=== PATIENT | female | born 1990 | race Hispanic/Latino ===

== ENCOUNTER 2022-07-04 14:36 | Emergency (ER) | payer OTHER, MEDICAID, SELFPAY ==
[2022-07-04 14:45] VITALS: BP 189/90; PULSE 91; RESP 16; TEMP 36.8; O2SAT 99; BMI 45.7
--- NOTE | 2022-07-04 14:59 | DI.US.S_ITS ---
PROCEDURE: US OB <= 14 WEEKS FETUS INDICATIONS: SPOTTING OUTSIDE/PRIOR DATING DATA: Last menstrual period (LMP): 05/18/2022. LMP-based estimated date of delivery (ELIF): 02/22/2023. First dating scan (date and location): 06/24 05/12. Estimated date of delivery (ELIF) from first dating scan: 03/05/2023. The calculations are made using the ultrasound ELIF of 03/05/2023. TECHNIQUE: Real-time scanning was performed of the fetus and maternal pelvic organs, with image documentation. Endovaginal scanning was also performed to better visualize the fetus and maternal ovaries. COMPARISON: None. FINDINGS: There is a very early intrauterine with a gestational sac without crown-rump length or heartbeat. The mean gestational sac diameter measures 0.4 cm, 5 weeks 1 day Maternal organs: Ovaries are unremarkable. IMPRESSION: Very early intrauterine with gestational sac only. Measurements are 5 weeks 1 day. Comment: Recommend serial beta HCG measurements and consideration of a follow-up ultrasound in 1-2 weeks. We strive to produce accurate, complete, and clear reports of imaging services. To assist us in improving patient care, this report was composed using standard report templates and voice recognition software. Therefore, it may contain abnormal punctuation, insertions and/or omissions. Occasional wrong-word or sound-alike substitutions may occur. Though we review the report and make efforts to correct it, we do recommend that the report be read carefully in proper context to recognize any text inaccuracies. Dictated by: Jose Rico M.D. on 07/04/2022 at 17:15 Approved by: Jose Rico M.D. on 07/04/2022 at 17:18
[2022-07-04 15:22] LABS: Add Manual Diff / Slide Review NO; Basophils Absolute Auto 100 /uL (0-100); Basophils Percent Auto 0.9 % (0-2); Eosinophils Absolute Auto 100 /uL (0-450); Eosinophils Percent Auto 1.2 % (2-4); Hematocrit 36.1 % (36-46); Hemoglobin 12.2 g/dL (12.0-16.0); Lymphocytes Absolute Auto 2600 /uL (1100-4500); Lymphocytes Percent Auto 26.4 % (25-40); Mean Corpuscular HGB Conc 33.7 % (30-36); Mean Corpuscular Hemoglobin 28.6 PG (26-34); Mean Corpuscular Volume 84.8 fL (80-100); Monocytes Absolute Auto 600 /uL (0-900); Monocytes Percent Auto 5.8 % (3-14); Neutrophils Absolute Auto 6600 /uL (1500-7000); Neutrophils Percent Auto 65.7 % (50-75); Platelet Count 250 X10^3/uL (150-400); Red Blood Cell Count 4.26 X10^6/uL (4.0-5.2); Red Cell Distribution Width 14.5 % (11.6-14.8)
[2022-07-04 15:41] LABS: Alanine Aminotransferase 30 IU/L (<35); Albumin 4.4 g/dL (3.5-5.0); Albumin Globulin Ratio 1.3 (1.0-2.8); Alkaline Phosphatase 84 U/L (38-126); Aspartate Aminotransferase 25 IU/L (14-36); Bilirubin Total 0.2 mg/dL (0.2-1.3); Blood Urea Nitrogen 8 mg/dL (7-17); Calcium 10.2 mg/dL (8.4-10.2); Carbon Dioxide 25 mmol/L (22-32); Chloride 104 mmol/L (98-107); Estimated Glomerular Filt Rate > 60 mL/min (>60); Globulin 3.3 g/dL (1.7-4.1); Glucose 88 mg/dL (70-100); HEMOLYSIS < 15 (0-50); Potassium 3.6 mmol/L (3.4-5.1); Sodium 138 mmol/L (137-145); Total Protein 7.7 g/dL (6.3-8.2)
[2022-07-04 15:42] VITALS: BP 144/85
[2022-07-04 16:02] LABS: HCG Quantitative /Beta subunit 251 mIU/mL
[2022-07-04 16:30] LABS: Bacteria Urine Few (2-10); Culture Indicated Urine Cult Not Indicated; RBC Urine 5-10/HPF (0-5/HPF); Squamous Epithelial Cell Urine 1-5 /HPF (0-5/HPF); WBC Urine 1-5/HPF (0-5/HPF)
[2022-07-04 16:32] VITALS: BP 137/72; PULSE 74; RESP 20; O2SAT 98
[2022-07-04 17:00] VITALS: BP 149/75; PULSE 80; RESP 20; O2SAT 99
[2022-07-04 18:18] VITALS: BP 128/71; PULSE 68; O2SAT 100
--- NOTE | 2022-07-04 19:03 | ED_ITS ---
HPI - <Shira Keller PA-C - Last Filed: 07/04/22 19:28> General Chief complaint: Vaginal Bleeding Stated complaint: sent by DR ab alejo preganacy Time Seen by Provider: 07/04/22 16:34 Source: patient Mode of arrival: Ambulatory History of Present Illness HPI Narrative: 31-year-old female presents to the ED today for vaginal bleeding and left sided abdominal pain. Patient states that she has been having vaginal bleeding for a week now. Patient was seen at a different ED last week, her beta hCG was measured to be 211, the ultrasound was unable to characterize a either ectopic or intrauterine. Patient states that since yesterday, her vaginal spotting has increased and she has also developed a left-sided abdominal pain. Patient denies fever, chills, nausea, vomiting, chest pain, shortness of breath, dysuria, lightheadedness, dizziness, syncope. Patient was sent by her primary care doctor to rule out an ectopic. Review of Systems <Shira Keller PA-C - Last Filed: 07/04/22 19:28> Review of Systems ROS Unobtainable: All systems reviewed & are unremarkable except as noted in HPI and below Constitutional Constitutional: Denies chills, Denies fatigue, Denies fever(s), Denies frequent falls, Denies lethargy and Denies weakness Eyes Eyes: Denies change in vision, Denies eye discharge, Denies irritation and Denies loss of vision ENT Ears, Nose, Mouth, and Throat: Denies change in voice, Denies dizziness, Denies neck pain, Denies sore throat and Denies throat swelling Cardiovascular Cardiovascular: Denies chest pain, Denies irregular heart rhythm, Denies lightheadedness, Denies palpitations, Denies dyspnea, Denies dyspnea on exertion and Denies orthopnea Respiratory Respiratory: Denies cough, Denies dyspnea, Denies dyspnea on exertion and Denies wheezing Gastrointestinal Gastrointestinal: Reports abdominal pain, Denies change in bowel habits, Denies diarrhea, Denies nausea and Denies vomiting Genitourinary Genitourinary: Reports abnormal vaginal bleeding, Denies hematuria, Denies flank pain, Denies urinary incontinence and Denies urinary urgency Musculoskeletal Musculoskeletal: Denies back pain, Denies muscle weakness, Denies neck pain, Denies numbness and Denies tingling Integumentary/Breasts Skin/Breast: Denies pruritus, Denies erythema, Denies rash and Denies wounds Neurologic Neurologic: Denies behavioral changes, Denies confusion, Denies dizziness, De nies frequent falls, Denies loss of vision, Denies numbness, Denies tingling and Denies weakness Psychiatric Psychiatric: Denies anxiety, Denies behavioral changes, Denies confusion, Denies depression, Denies homicidal ideation and Denies suicidal ideation Endocrine Endocrine: Denies fatigue, Denies flushing and Denies palpitations Hematologic/Lymphatic Hematologic/Lymphatic: Denies easy bruising Allergic/Immunologic Allergic/Immunologic: Denies urticaria, Denies throat swelling and Denies wheezing Exam <Shira Keller PA-C - Last Filed: 07/04/22 19:28> Narrative Exam Narrative: Const General:?cooperative, healthy appearing and comfortable [facility] Head:?normal to inspection Ears:?hearing grossly normal bilaterally Nose:?external nose normal Face and sinus:?normal facial exam and sinuses nontender Mouth:?oral mucosae normal Throat:?posterior oropharynx normal Eyes General:?appearance normal, both eyes and all related structures Neck Neck:?normal visual inspection and no lymphadenopathy noted Resp Effort & Inspection:?normal respiratory effort Auscultation:?clear to auscultation bilaterally Cardio Rate:?regular rate Rhythm:?regular rhythm GI Abdomen is soft, non distended, non tender to palpation. Neuro General:?patient alert, patient awake and patient oriented x3 Initial Vital Signs Initial Vital Signs: Vital Signs Temperature 98.3 F 07/04/22 14:45 Pulse Rate 91 H 07/04/22 14:45 Respiratory Rate 16 07/04/22 14:45 Blood Pressure 189/90 H 07/04/22 14:45 Pulse Oximetry 99 07/04/22 14:45 Oxygen Delivery Method Room Air 07/04/22 14:45 <Trevon Neal DO - Last Filed: 07/05/22 07:06> Initial Vital Signs Initial Vital Signs: Vital Signs Temperature 98.3 F 07/04/22 14:45 Pulse Rate 91 H 07/04/22 14:45 Respiratory Rate 16 07/04/22 14:45 Blood Pressure 189/90 H 07/04/22 14:45 Pulse Oximetry 99 07/04/22 14:45 Oxygen Delivery Method Room Air 07/04/22 14:45 Course <Shira Keller PA-C - Last Filed: 07/04/22 19:28> Orders Ordered: ED Orders 07/04/22 14:59 US OB <= 14 weeks fetus Stat 07/04/22 15:13 Complete Blood Count AUTO DIFF Stat Comprehensive Metabolic Panel Stat HCG Quantitative /Beta subunit Stat Type and Screen Stat 07/04/22 15:33 Urine Microscopic Stat Vital Signs Vital signs: Vital Signs - 8 hr 07/04/22 14:45 07/04/22 15:42 07/04/22 16:32 Temperature 98.3 F Pulse Rate 91 H 74 Respiratory Rate 16 20 Blood Pressure 189/90 H 144/85 H 137/72 Pulse Oximetry 99 98 Oxygen Delivery Method Room Air Room Air 07/04/22 17:00 07/04/22 18:18 Temperature Pulse Rate 80 68 Respiratory Rate 20 Blood Pressure 149/75 H 128/71 Pulse Oximetry 99 100 Oxygen Delivery Method Room Air Room Air <Trevon Neal DO - Last Filed: 07/05/22 07:06> Orders Ordered: ED Orders 07/04/22 14:59 US OB <= 14 weeks fetus Stat 07/04/22 15:13 Complete Blood Count AUTO DIFF Stat Comprehensive Metabolic Panel Stat HCG Quantitative /Beta subunit Stat Type and Screen Stat 07/04/22 15:33 Urine Microscopic Stat Vital Signs Vital signs: Vital Signs - 8 hr 07/04/22 14:45 07/04/22 15:42 07/04/22 16:32 Temperature 98.3 F Pulse Rate 91 H 74 Respiratory Rate 16 20 Blood Pressure 189/90 H 144/85 H 137/72 Pulse Oximetry 99 98 Oxygen Delivery Method Room Air Room Air 07/04/22 17:00 07/04/22 18:18 Temperature Pulse Rate 80 68 Respiratory Rate 20 Blood Pressure 149/75 H 128/71 Pulse Oximetry 99 100 Oxygen Delivery Method Room Air Room Air MDM - OB/Uterine Contractions <Shira Keller PA-C - Last Filed: 07/04/22 19:28> Lab Data 07/04/22 15:13 07/04/22 15:13 Labs: Lab Results 07/04/22 07/04/22 07/04/22 Range/Units 15:13 15:13 15:13 WBC 10.0 (4.5-11.0) X10^3/uL RBC 4.26 (4.0-5.2) X10^6/uL Hgb 12.2 (12.0-16.0) g/dL Hct 36.1 (36-46) % MCV 84.8 (80-100) fL MCH 28.6 (26-34) PG MCHC 33.7 (30-36) % RDW 14.5 (11.6-14.8) % Plt Count 250 (150-400) X10^3/uL Neut % (Auto) 65.7 (50-75) % Lymph % (Auto) 26.4 (25-40) % [place] % (Auto) 5.8 (3-14) % Eos % (Auto) 1.2 L (2-4) % Baso % (Auto) 0.9 (0-2) % Neut # (Auto) 6600 (2032-9366) /uL Lymph # (Auto) 2600 (3652-7882) /uL [place] # (Auto) 600 (0-900) /uL Eos # (Auto) 100 (0-450) /uL Baso # (Auto) 100 (0-100) /uL Sodium 138 (137-145) mmol/L Potassium 3.6 (3.4-5.1) mmol/L Chloride 104 (98-107) mmol/L Carbon Dioxide 25 (22-32) mmol/L BUN 8 (7-17) mg/dL Creatinine 0.42 L (0.52-1.04) mg/dL Estimated GFR > 60 (>60) mL/min BUN/Creatinine Ratio 19.0 (6-22) Glucose 88 (70-100) mg/dL Calcium 10.2 (8.4-10.2) mg/dL Total Bilirubin 0.2 (0.2-1.3) mg/dL AST 25 (14-36) IU/L ALT 30 (<35) IU/L Alkaline Phosphatase 84 (38-126) U/L Total Protein 7.7 (6.3-8.2) g/dL Albumin 4.4 (3.5-5.0) g/dL Globulin 3.3 (1.7-4.1) g/dL Albumin/Globulin Ratio 1.3 (1.0-2.8) HCG, Quant 251 mIU/mL Urine RBC (0-5/HPF) Urine WBC (0-5/HPF) Ur Squamous Epith Cells (0-5/HPF) Urine Bacteria (None) Ur Culture Indicated? Blood Type A Positive Antibody Screen Negative 07/04/22 Range/Units 15:33 WBC (4.5-11.0) X10^3/uL RBC (4.0-5.2) X10^6/uL Hgb (12.0-16.0) g/dL Hct (36-46) % MCV (80-100) fL MCH (26-34) PG MCHC (30-36) % RDW (11.6-14.8) % Plt Count (150-400) X10^3/uL Neut % (Auto) (50-75) % Lymph % (Auto) (25-40) % [place] % (Auto) (3-14) % Eos % (Auto) (2-4) % Baso % (Auto) (0-2) % Neut # (Auto) (5099-8712) /uL Lymph # (Auto) (2727-7002) /uL [place] # (Auto) (0-900) /uL Eos # (Auto) (0-450) /uL Baso # (Auto) (0-100) /uL Sodium (137-145) mmol/L Potassium (3.4-5.1) mmol/L Chloride (98-107) mmol/L Carbon Dioxide (22-32) mmol/L BUN (7-17) mg/dL Creatinine (0.52-1.04) mg/dL Estimated GFR (>60) mL/min BUN/Creatinine Ratio (6-22) Glucose (70-100) mg/dL Calcium (8.4-10.2) mg/dL Total Bilirubin (0.2-1.3) mg/dL AST (14-36) IU/L ALT (<35) IU/L Alkaline Phosphatase (38-126) U/L Total Protein (6.3-8.2) g/dL Albumin (3.5-5.0) g/dL Globulin (1.7-4.1) g/dL Albumin/Globulin Ratio (1.0-2.8) HCG, Quant mIU/mL Urine RBC 5-10/hpf H (0-5/HPF) Urine WBC 1-5/hpf (0-5/HPF) Ur Squamous Epith Cells 1-5 /hpf (0-5/HPF) Urine Bacteria Few (2-10) H (None) Ur Culture Indicated? Cult not indicated Blood Type Antibody Screen Urine Dip Bedside Urine Glucose Negative Bedside Urine Bilirubin - Negative Bedside Urine Ketone - Negative Urine Specific [place] 1.025 Bedside Urine Occult Blood +++ Bedside Urine pH 6 Bedside Urine Protein - Negative Bedside Urine Urobilinogen - Negative Bedside Urine Nitrite - Negative Bedside Urine Leukocytes - Negative Esterase MDM Narrative Medical decision making narrative: 31-year-old female presents to the ED today for vaginal bleeding and left sided abdominal pain. Concern for threatened miscarriage versus ectopic versus intrauterine versus vaginal bleeding during versus other. Obtained labs, UA, ultrasound. Quantitative beta hCG today was 251. Labs otherwise within normal limits. UA without UTI. Ultrasound shows very early intrauterine with gestational sac only, without crown-rump length or heartbeat. Measurements correlate to 5 weeks and 1 day. Discussed findings with patient. Also discussed that given a small increase in hCG since last week, there is a possibility of a miscarriage. Recommend serial HCGs and ultrasound. Patient agrees to follow-up with her OBGYN and PCP. ED return precautions discussed with patient. Patient verbalized understanding. Medical records reviewed: Yes <Trevon Neal, - Last Filed: 07/05/22 07:06> Lab Data Labs: Lab Results 07/04/22 07/04/22 07/04/22 Range/Units 15:13 15:13 15:13 WBC 10.0 (4.5-11.0) X10^3/uL RBC 4.26 (4.0-5.2) X10^6/uL Hgb 12.2 (12.0-16.0) g/dL Hct 36.1 (36-46) % MCV 84.8 (80-100) fL MCH 28.6 (26-34) PG MCHC 33.7 (30-36) % RDW 14.5 (11.6-14.8) % Plt Count 250 (150-400) X10^3/uL Neut % (Auto) 65.7 (50-75) % Lymph % (Auto) 26.4 (25-40) % [place] % (Auto) 5.8 (3-14) % Eos % (Auto) 1.2 L (2-4) % Baso % (Auto) 0.9 (0-2) % Neut # (Auto) 6600 (7898-1993) /uL Lymph # (Auto) 2600 (7721-5028) /uL [place] # (Auto) 600 (0-900) /uL Eos # (Auto) 100 (0-450) /uL Baso # (Auto) 100 (0-100) /uL Sodium 138 (137-145) mmol/L Potassium 3.6 (3.4-5.1) mmol/L Chloride 104 (98-107) mmol/L Carbon Dioxide 25 (22-32) mmol/L BUN 8 (7-17) mg/dL Creatinine 0.42 L (0.52-1.04) mg/dL Estimated GFR > 60 (>60) mL/min BUN/Creatinine Ratio 19.0 (6-22) Glucose 88 (70-100) mg/dL Calcium 10.2 (8.4-10.2) mg/dL Total Bilirubin 0.2 (0.2-1.3) mg/dL AST 25 (14-36) IU/L ALT 30 (<35) IU/L Alkaline Phosphatase 84 (38-126) U/L Total Protein 7.7 (6.3-8.2) g/dL Albumin 4.4 (3.5-5.0) g/dL Globulin 3.3 (1.7-4.1) g/dL Albumin/Globulin Ratio 1.3 (1.0-2.8) HCG, Quant 251 mIU/mL Urine RBC (0-5/HPF) Urine WBC (0-5/HPF) Ur Squamous Epith Cells (0-5/HPF) Urine Bacteria (None) Ur Culture Indicated? Blood Type A Positive Antibody Screen Negative 07/04/22 Range/Units 15:33 WBC (4.5-11.0) X10^3/uL RBC (4.0-5.2) X10^6/uL Hgb (12.0-16.0) g/dL Hct (36-46) % MCV (80-100) fL MCH (26-34) PG MCHC (30-36) % RDW (11.6-14.8) % Plt Count (150-400) X10^3/uL Neut % (Auto) (50-75) % Lymph % (Auto) (25-40) % [place] % (Auto) (3-14) % Eos % (Auto) (2-4) % Baso % (Auto) (0-2) % Neut # (Auto) (5145-2211) /uL Lymph # (Auto) (5176-0581) /uL [place] # (Auto) (0-900) /uL Eos # (Auto) (0-450) /uL Baso # (Auto) (0-100) /uL Sodium (137-145) mmol/L Potassium (3.4-5.1) mmol/L Chloride (98-107) mmol/L Carbon Dioxide (22-32) mmol/L BUN (7-17) mg/dL Creatinine (0.52-1.04) mg/dL Estimated GFR (>60) mL/min BUN/Creatinine Ratio (6-22) Glucose (70-100) mg/dL Calcium (8.4-10.2) mg/dL Total Bilirubin (0.2-1.3) mg/dL AST (14-36) IU/L ALT (<35) IU/L Alkaline Phosphatase (38-126) U/L Total Protein (6.3-8.2) g/dL Albumin (3.5-5.0) g/dL Globulin (1.7-4.1) g/dL Albumin/Globulin Ratio (1.0-2.8) HCG, Quant mIU/mL Urine RBC 5-10/hpf H (0-5/HPF) Urine WBC 1-5/hpf (0-5/HPF) Ur Squamous Epith Cells 1-5 /hpf (0-5/HPF) Urine Bacteria Few (2-10) H (None) Ur Culture Indicated? Cult not indicated Blood Type Antibody Screen Urine Dip Bedside Urine Glucose Negative Bedside Urine Bilirubin - Negative Bedside Urine Ketone - Negative Urine Specific [place] 1.025 Bedside Urine Occult Blood +++ Bedside Urine pH 6 Bedside Urine Protein - Negative Bedside Urine Urobilinogen - Negative Bedside Urine Nitrite - Negative Bedside Urine Leukocytes - Negative Esterase Discharge Plan Departure Patient Disposition: Home Clinical Impression: Vaginal bleeding affecting early Instructions: DI for Vaginal Bleeding During Activity Restrictions/Additional Instructions: You were evaluated in the ED today for vaginal bleeding during . Your ultrasound shows a very early intrauterine with a gestational sac only, measurements are 5 weeks and 1 day. Your quantitative hCG was 251 today, which is only a slight increase from 7 days ago when it was 211, and therefore there is a possibility of a miscarriage. Please follow-up with your PCP or OBGYN so they can repeat your hCG every few days and repeat ultrasounds to monitor the . Return to the ED if you experience worsening bleeding, pain. Referrals: Angel Sparrow PA-C [Primary Care Provider] - Stand Alone Forms: Patient Portal/API <Trevon Neal DO - Last Filed: 07/05/22 07:06> Cosign ED Attending Cosignature Attestation: Dr Neal Co-Sign Statement: I was available for consultation during this patient's emergency department visit. This chart is signed by myself for administrative purposes only. I did not have direct contact with this patient during this visit. They were seen independently by the APC.
== END 2022-07-04 18:19 | disposition home or self-care (01) ==
PROVIDERS: Emergency Medicine; Emergency Provider Student in an Organized Health Care Education/Training Program; PCP Physician Assistant
DX: O20.9 Hemorrhage in early pregnancy, unspecified (principal); R10.9 Unspecified abdominal pain
CPT/HCPCS: 36415; 76801; 76817; 80053; 81003; 81015; 84702; 85025; 86850; 86900; 86901; 99283; 99284